=== PATIENT | male | born 1990 | race Two or more races ===

== ENCOUNTER → 2020-03-19 | Outpatient (CLI) | payer OTHER | END | disposition home or self-care (01) | LOC: LAB 14:23 | PROVIDERS: ATTEND Preventive Medicine Preventive Medicine/Occupational Environmental Medicine | DX: Z02.1 Encounter for pre-employment examination (principal) | CPT/HCPCS: 36415; 86706; 86735; 86762; 86765; 86787 ==

== ENCOUNTER 2021-10-30 15:06 | Emergency (ER) | payer OTHER ==
[~2021-10-30] VITALS: Ht 162.6 cm; Wt 90.7 kg
[2021-10-30 15:36] VITALS: BP 144/91
[2021-10-30 16:37] LABS: Hepatitis B Surface Antibody Positive (Negative)
== END 2021-10-30 18:32 | disposition home or self-care (01) ==
LOC: ER 15:06 → EEVIPCON 15:06 → ER 18:32
DX: Z77.21 Contact with and (suspected) exposure to potentially hazardous body fluids (principal)
CPT/HCPCS: 36415; 86703; 86706; 86803; 87340